=== PATIENT | female | born 1990 ===

== ENCOUNTER 2019-07-19 20:17 | Emergency (ER) | payer MEDICAID ==
[~2019-07-19] VITALS: Ht 165.1 cm; Wt 68.0 kg
[~2019-07-19 20:17] MED LIST: DOCU-131 PO; FERR325T18 PO; IBUP-1223 PO; OXYC-302 PO; PREN1TAB27 PO
[2019-07-19 20:58] VITALS: BP 155/110
[2019-07-19] MEDS ORDERED: IBUPROFEN 200 MG TABLET ONE (21:16)
[2019-07-19] MEDS ORDERED: IBUPROFEN 800 MG TABLET PO ONE (21:30)
== END 2019-07-19 21:45 | disposition home or self-care (01) ==
LOC: ED 21:10
DX: H65.01 Acute serous otitis media, right ear (principal); I10 Essential (primary) hypertension
CPT/HCPCS: 99283